=== PATIENT | male | born 1985 | race Caucasian/White ===

== ENCOUNTER 2017-01-20 22:10 | Emergency (ER) | payer SELFPAY ==
[2017-01-20 22:15] VITALS: BP 140/79; BMI 27.4
--- NOTE | 2017-01-20 22:36 | DR.GENAD ---
HPI - PCP Primary Care Physician: NFD - Complaint/Symptoms Chief Complaint Doctors Comments: Patient states that he vomited x two on yesterday and once today. Admits to a headache but no fever. Chief Complaint:: PT STATES" I THREW 1 TIME TODAY MY STOMACH BEEN HURTING ME FOR 2 DAYS" - Source History Provided: Patient - Mode of Arrival Mode of Arrival: Ambulatory - Timing Onset of Chief Complaint: 01/19/17 PMH - PMH Past Medical History: No Past Surgical History: No Surgical History: No History - Family History History of Family Medical Conditions: No - Social History Does any household member use tobacco: Yes Alcohol Use: Occasionally Do you use any recreational Drugs:: No Lives With: Family Lives Where: Home - infectious screening In the last 2 months have you had wt loss of >10#?: NO Have you had fever, night sweats or hemotysis?: No Have you traveled outside the country in the last 6 months?: No Isolation: Standard ROS - Review of Systems Constitutional: No Symptoms Reported Eyes: No Symptoms Reported ENTM: No Symptoms Reported Respiratoy: No Symptoms Reported Cardiovascular: No Symptoms Reported Gastrointestinal/Abdominal: No Symptoms Reported Genitourinary: No Symptoms Reported Neurological: No Symptoms Reported Musculoskeletal: No Symptoms Reported Integumentary: No Symptoms Reported Hematologic/Lymphatic: No Symptoms Reported Endocrine: No Symptoms Reported Psychiatric: No Symptoms Reported All Other Systems: Reviewed and Negative PE - Vital Signs Vitals: Temperature 98.2 F Pulse Rate 70 Respiratory Rate 18 Blood Pressure 140/79 O2 Sat by Pulse Oximetry 99 - General Limitations: No Limitations General Appearance: Alert, In No Apparent Distress - Head Head Exam: Normal Inspection, Atraumatic - Eyes Eye exam: Normal Appearance, PERRL, EOMI - ENT ENT Exam: Normal Exam External Ear Exam: Normal External Inspection TM/Canal Exam: Bilateral Normal Nose Exam: Normal Nose Exam Mouth Exam: Normal Inspection Throat Exam: Normal Inspection - Neck Neck Exam: Normal Inspection - Chest Chest Inspection: Normal Inspection - Respiratory Respiratory Exam: Normal Lung Sounds Bilat Respiratory Exam: Bilateral Clear to Auscultation - Cardiovascular Cardiovascular Exam: Regular Rate, Normal Rhythm - Abdominal Exam Abdominal Exam: Normal Inspection, Normal Bowel Sounds Abdominal Tenderness: negative: RUQ, RLQ, LUQ, LLQ, Epigastrium, Suprapubic, Diffuse, Mild, Moderate, Severe, Other - Extremities Extremities Exam: Normal Inspection, Full ROM - Back Back Exam: Normal Inspection - Neurologic Neurological Exam: Alert, Oriented X3, CN II-XII Intact - Psychiatric Psychiatric Exam: Normal Affect, Normal Mood - Skin Skin Exam: Warm, Dry, Intact Course - Reevaluation 1st: Unchanged ROR - Labs Reviewed Laboratory Results Reviewed?: Yes Result Diagrams: 01/20/17 22:45 01/20/17 22:45 Laboratory: WBC 4.2 X10^3/uL (3.6-10.0) 01/20/17 22:45 RBC 4.99 X10^6/uL (4.7-6.0) 01/20/17 22:45 Hgb 14.2 g/dL (13.5-18.0) 01/20/17 22:45 Hct 42.3 % (42.0-54.0) 01/20/17 22:45 MCV 84.8 fL (80.0-100.0) 01/20/17 22:45 MCH 28.4 pg (27.0-34.0) 01/20/17 22:45 MCHC 33.5 g/dL (33.0-35.0) 01/20/17 22:45 RDW 14.5 % (11.6-16.5) 01/20/17 22:45 Plt Count 157 X10^3/uL (150.0-450.0) 01/20/17 22:45 MPV 8.5 fL (7.4-11.0) 01/20/17 22:45 Neut % 52.6 % (42.0-75.0) 01/20/17 22:45 Lymph % 33.8 % (21.0-51.0) 01/20/17 22:45 [place] % 11.6 % (0.0-13.0) 01/20/17 22:45 Eos % 1.3 % (0.9-2.9) 01/20/17 22:45 Baso % 0.7 % (0.2-1.0) 01/20/17 22:45 Neut # 2.2 x10^3/uL (2.2-4.8) 01/20/17 22:45 Lymph # 1.4 X10^3/uL (1.3-2.9) 01/20/17 22:45 [place] # 0.5 x10^3/uL (0.3-0.8) 01/20/17 22:45 Eos # 0.1 x10^3/uL (0.0-0.2) 01/20/17 22:45 Baso # 0.0 X10^3/uL (0.0-0.1) 01/20/17 22:45 Absolute Nucleated RBC 0.1 /100WBC 01/20/17 22:45 Sodium 141 mmol/L (136-145) 01/20/17 22:45 Corrected Sodium TNP 01/20/17 22:45 Potassium 3.9 mmol/L (3.5-5.1) 01/20/17 22:45 Chloride 106 mmol/L (98-107) 01/20/17 22:45 Carbon Dioxide 28.7 mmol/L (21-32) 01/20/17 22:45 BUN 5 mg/dL (7-18) L 01/20/17 22:45 Creatinine 0.93 mg/dL (0.70-1.30) 01/20/17 22:45 Est GFR (MDRD) Af Amer > 60 (>60) 01/20/17 22:45 Est GFR (MDRD) Non-Af > 60 (>60) 01/20/17 22:45 Glucose 82 mg/dL (65-99) 01/20/17 22:45 Calcium 8.5 mg/dL (8.5-10.1) 01/20/17 22:45 - Diagnosis Discharge Problem: Vomiting alone Qualifiers: Vomiting type: unspecified Vomiting Intractability: non-intractable Qualified Code(s): R11.11 - Vomiting without nausea - Discharge Plan Condition: Stable - Follow ups/Referrals Follow ups/Referrals: NFD,None [Primary Care Provider] - 3 days - Instructions
[2017-01-20 22:55] LABS: BASOPHILS % (AUTO) 0.7 % (0.2-1.0); EOSINOPHILS # (AUTO) 0.1 x10^3/uL (0.0-0.2); EOSINOPHILS % (AUTO) 1.3 % (0.9-2.9); HEMATOCRIT 42.3 % (42.0-54.0); HEMOGLOBIN 14.2 g/dL (13.5-18.0); LYMPHOCYTES # (AUTO) 1.4 X10^3/uL (1.3-2.9); LYMPHOCYTES % (AUTO) 33.8 % (21.0-51.0); MEAN CORPUSCULAR HEMOGLOBIN 28.4 pg (27.0-34.0); MEAN CORPUSCULAR HGB CONC 33.5 g/dL (33.0-35.0); MEAN CORPUSCULAR VOLUME 84.8 fL (80.0-100.0); MEAN PLATELET VOLUME 8.5 fL (7.4-11.0); MONOCYTES # (AUTO) 0.5 x10^3/uL (0.3-0.8); MONOCYTES % (AUTO) 11.6 % (0.0-13.0); NEUTROPHILS # (AUTO) 2.2 x10^3/uL (2.2-4.8); NEUTROPHILS % (AUTO) 52.6 % (42.0-75.0); PLATELET COUNT 157 X10^3/uL (150.0-450.0); RED BLOOD COUNT 4.99 X10^6/uL (4.7-6.0); RED CELL DISTRIBUTION WIDTH 14.5 % (11.6-16.5); WHITE BLOOD COUNT 4.2 X10^3/uL (3.6-10.0)
[2017-01-20 23:01] LABS: BLOOD UREA NITROGEN 5 mg/dL (7-18); CALCIUM 8.5 mg/dL (8.5-10.1); CARBON DIOXIDE 28.7 mmol/L (21-32); CHLORIDE 106 mmol/L (98-107); CREATININE 0.93 mg/dL (0.70-1.30); GLUCOSE 82 mg/dL (65-99); SODIUM 141 mmol/L (136-145); eGFR BLACK RACES > 60 (>60); eGFR NON BLACK RACES > 60 (>60)
== END 2017-01-20 23:43 | disposition home or self-care (01) ==
LOC: ER 22:10
DX: R11.11 Vomiting without nausea (principal)
CPT/HCPCS: 36415; 80048; 85025; 99282